=== PATIENT | male | born 1940 | race Caucasian/White ===

== ENCOUNTER → 2020-02-28 10:00 | Outpatient (CLI) | payer MEDICARE, OTHER | END | disposition home or self-care (01) | LOC: D.HCCARDIO 10:00 | PROVIDERS: ATTEND Internal Medicine Cardiovascular Disease | DX: I25.10 Atherosclerotic heart disease of native coronary artery without angina pectoris (principal) ==

== ENCOUNTER 2020-03-12 11:09 | Day surgery (SDC) | payer MEDICARE, OTHER ==
[~2020-03-12] VITALS: Ht 177.8 cm; Wt 98.5 kg
--- NOTE | ~2020-03-12 | HEMODYNAMI ---
PATIENT:ROSIE SOTOMAYOR SR MEDICAL RECORD: [id number] : 40 LOCATION:[facility] ADMISSION DATE: 03/12/20 Generatedon:03/12/202014:29 Patient name: ROSIE SOTOMAYOR Patient #: [id number] SSN: [id number] : 1940 Date of study: 03/12/2020 Page: Of Hemodynamic Procedure Report Patient Data Patient Demographics Procedure consent was obtained First Name: ROSIE Gender: Male Last Name: BRAN Suffix: [facility] Initial: D : 1940 Patient #: [id number] Age: 79 year(s) Race: SSN: [id number] Additional ID: [id number] Contact details [address]: [address] [place] [address] State: [place] City: [place] Zip code: [address] Past Medical History Allergies: No known allergies Admission Admission Data Admission Date: 03/12/2020 Admission Time: 11:09 Arrival Date: 03/12/2020 Arrival Time: 0:00 Height (in.): 70.08 BSA: 2.17 (m2) Height (cm.): 178 BMI: 31.25 (kg/m2) Weight (lbs.): 218.26 Weight (kg.): 99 Lab Results Lab Result Date: 03/12/2020 Lab Result Time: 0:00 Biochemistry Name Units Result Min Max BUN mg/dl 27 --(----)-* 7 18 Creatinine mg/dl 1.8 --(----)-* 0.6 1.3 eGFR ml/min 39 *-(----)-- 90 120 NONAFRICAN CBC Name Units Result Min Max Hematocrit % 39.5 -*(----)-- 42 54 Hemoglobin g/dl 12.8 -*(----)-- 13.5 17.5 Procedure Procedure Types Cath Procedure Diagnostic Procedure LHC [facility] w/Coronaries Sedation Charges Moderate Sedation up to 15 minutes Procedure Description Procedure Date Procedure Date: 03/12/2020 Procedure Start Time: 13:58 Procedure End Time: 14:25 Procedure Staff Name Function Dax Estrada MD Performing Physician Zelda Gómez RT Monitor Mila French RN Nurse Raven Mancia RT Scrub Indication CAD Procedure Data Cath Procedure Fluoroscopy Diagnostic fluoroscopy Total fluoroscopy Time: 0 time: 0 min min Diagnostic fluoroscopy Total fluoroscopy dose: dose: 1010 mGy 1010 mGy Contrast Material Contrast Material Type Amount (ml) Isovue 300 86 Entry Location Entry Primary Successful Side Size Upsize Upsize Entry Closure Succes sful Closure Location (Fr) 1 (Fr) 2 (Fr) Remarks Device Remarks Radial Right 6 Fr artery Short Femoral Right 5 Fr Exoseal artery Estimated blood loss: 10 ml Diagnostic catheters Device Type Used For End Catheter Placement DIAGNOSTIC Marshall 110cm Procedure 5Fr catheter ([id number]) DIAGNOSTIC [place] 110cm 5 Procedure Fr catheter ([id number]) DIAGNOSTIC AR MOD 5Fr Procedure Catheter ([id number]) DIAGNOSTIC AR MOD 5Fr Procedure Catheter ([id number]) Procedure Complications No complications Procedure Medications Medication Administration Route Dosage 0.9% NaCl I.V. 100 ml/hr Oxygen etCO2 Nasal cannula 2 l/min Lidocaine 2% added to field 20 Heparin Flush Bag added to field 2 bags (1000units/500ml NS) Radial Cocktail added to field 1 syringe (Verapamil 2mg/Nitro 400mcg/Heparin 1500units) Versed I.V. 2 mg Fentanyl I.V. 50 mcg Fentanyl I.V. 50 mcg Hemodynamics Rest BSA: 2.17 (m2) HGB: 12.8 (g/dl) O2 Consumption: Estimated: 238.66 (ml/min) O2 Co nsumption indexed: Estimated:109.98 (ml/min/m) Heart Rate: 58 (bpm) Pressure Samples Time Site Value (mmHg) Purpose Heart Use Rate(bpm) 14:01 LV 128/8,17 Snapshot 55 Gradients Valve Time Site Site Mean SEP/DFP Peak To Heart Use 1 2 (mmHg) (sec/min) Peak Rate (mmHg) (bpm) Aortic 14:02 LV AO 58 Snapshots Pre Cath Intra NCS Post Cath Vital Signs Time Heart Resp SPO2 etCO2 NIBP (mmHg) Rhythm Pain Sedation Rate (ipm) (%) (mmHg) Status Level (bpm) 13:35:14 52 13 98 31.5 150/68(123) SB 0 (11) 10(A) , No pain 13:39:38 55 13 98 29.6 143/67(119) SB 0 (11) 10(A) , No pain 13:43:59 62 13 98 36.8 147/68(117) NSR 0 (11) 10(A) , No pain 13:48:19 58 13 98 31.5 139/73(107) SB 0 (11) 10(A) , No pain 13:53:11 56 12 97 39.8 146/73(108) SB 0 (11) 10(A) , No pain 13:57:32 53 11 97 36 145/67(118) SB 0 (11) 10(A) , No pain 14:01:50 56 13 97 33.7 120/59(88) SB 0 (11) 10(A) , No pain 14:06:47 53 12 96 33.7 123/63(98) SB 0 (11) 9(A) , No pain 14:10:57 52 11 97 32.2 121/61(103) SB 0 (11) 9(A) , No pain 14:15:11 52 11 98 33.7 132/64(109) SB 0 (11) 9(A) , No pain 14:19:27 54 13 98 30.8 134/68(111) SB 0 (11) 9(A) , No pain 14:23:45 49 12 98 35.2 133/69(108) SB 0 (11) 9(A) , No pain Medications Time Medication Route Dose Verified Delivered Reason Notes E ffectiveness by by 13:39:06 0.9% NaCl I.V. 100 Dax Mila used for ml/hr Sean French scenario writer 13:39:13 Oxygen etCO2 2 l/min Dax Mila used for Nasal Sean French procedure cannula RN 13:39:17 Lidocaine 2% added 20ml Dax Dax for local to vial Sean Estrada MD anesthetic field 13:39:21 Heparin Flush added 2 bags Dax Dax used for Bag to Sean Estrada MD procedure (1000units/500ml field NS) 13:39:30 Radial Cocktail added 1 Dax Dax used for (Verapamil to syringe Sean Estrada MD procedure 2mg/Nitro field 400mcg/Heparin 1500units) 13:56:12 Versed I.V. 2 mg Dax Mila for Sean French sedation RN 13:56:20 Fentanyl I.V. 50 mcg Dax Mila for Sean French sedation RN 14:01:10 Fentanyl I.V. 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 12:57:16 Time tracking: Regular hours (M-F 7:00 - 5:00) 12:57:27 Plan of Care:Hemodynamics will remain stable., Cardiac rhythm will remain stable., Comfort level will be maintained., Respiratory function will remain adequate., Patient/ family verbilizes understanding of procedure., Procedure tolerated without complication., Recovers from procedure without complications.. 12:59:16 H&P Date Dictated: 03/12/2020 H&P Addendum completed by physician on day of procedure. (MUST COMPLETE FOR ALL OUTPATIENTS), New H&P dictated by physician.. 13:10:46 Lab Result : eGFR NONAFRICAN 39 ml/min 13:10:46 Lab Result : Hemoglobin 12.8 g/dl 13:10:46 Lab Result : BUN 27 mg/dl 13:10:46 Lab Result : Creatinine 1.8 mg/dl 13:10:46 Lab Result : Hematocrit 39.5 % 13:10:54 Patient Height : 70.08 inches 13:10:59 Patient Weight : 218.26 lbs 13:16:38 Risk of Mortality: 0.3 13:16:43 Risk of blood transfusion: 0.7 13:16:47 Risk of LANDON: 3.0 13:17:04 Lab results completed and on chart. 13:18:03 Patient allergic to No known allergies 13:34:04 Vital chart was started 13:39:06 0.9% NaCl 100 ml/hr I.V. was administered by Mila French RN; used for procedure; Verbal order read back and verified. 13:39:13 Oxygen 2 l/min etCO2 Nasal cannula was administered by Mila French RN; used for procedure; Verbal order read back and verified. 13:39:17 Lidocaine 2% 20ml vial added to field was administered by Dax Estrada MD; for local anesthetic; Verbal order read back and verified. 13:39:21 Heparin Flush Bag (1000units/500ml NS) 2 bags added to field was administered by Dax Estrada MD; used for procedure; Verbal order read back and verified. 13:39:30 Radial Cocktail (Verapamil 2mg/Nitro 400mcg/Heparin 1500units) 1 syringe added to field was administered by Dax Estrada MD; used for procedure; Verbal order read back and verified. 13:44:53 Mila French RN sent for patient. Start room use. 13:45:02 Warm blankets applied, and ky hugger turned on for patient comfort. 13:45:03 Correct patient and procedure confirmed by team. 13:45:06 ECG and BP/O2 sat monitors applied to patient. 13:45:13 Baseline sample Acquired. 13:45:21 Full Disclosure recording started 13:45:28 Pre-procedure instructions explained to patient. 13:45:47 Is the patient allergic to Iodine/contrast media? No. 13:45:51 Is patient on blood thinner?Yes 13:45:59 Patient diabetic? Yes. 13:46:02 If diabetic: On Metformin? No 13:46:07 Snore? Yes 13:46:08 Sleep apnea? No 13:46:18 Dentures? No ? 13:46:26 Patient pain scale 0/10 ?. 13:46:34 IV patent on arrival in left forearm with 0.9% NaCl at [facility]. 13:46:45 Right Radial & Right Groin area was prepped with chlora-prep and draped in sterile fashion 13:46:46 Alarms reviewed by R. N. 13:46:47 Sharps counted by scrub and verified by R.N. 13:46:48 Physician paged 13:47:05 Use device set Radial Dx or PCI 13:48:09 ACIST Syringe (04895) opened to sterile field. 13:48:09 Medline Cath Pack ([id number]) opened to sterile field. 13:48:10 Bag Decanter (2002) opened to sterile field. 13:48:11 ACIST Hand Control (97033) opened to sterile field. 13:48:11 ACIST Manifold (07183) opened to sterile field. 13:48:12 Tegaderm 4 x 4 (1626W) opened to sterile field. 13:48:52 MBrace Wrist Support ([id number]) opened to sterile field. 13:49:04 EMERALD Guide Wire (675-932) opened to sterile field. 13:49:04 SHEATH 6FR RAIN ([id number]) opened to sterile field. 13:55:22 Physician arrived 13:55:22 --------ALL STOP TIME OUT------ 13:55:23 Final Timeout: patient, procedure, and site verified with staff and physician. All members of the team are in agreement. 13:55:26 Right Radial & Right Groin site verified by team. 13:55:31 Fire Safety Assessment: A--An alcohol-based skin anteseptic being used preoperatively., C--Open oxygen or nitrous oxide is being used., D--An ESU, laser, or fiber-optic light is being used. 13:55:41 Physical assessment completed. ASA score P 3 - A patient with severe systemic disease as per Dax Estrada MD. 13:55:45 2) 60-89 Mildly reduced kidney function, and other findings (as for stage 1) point to kidney disease. 13:55:49 Maximum allowable contrast dose (3.7 X eGFR X 0.75)108 ml. 13:55:53 Sedation plan: IV Moderate Sedation Medication:Versed, Fentanyl 13:56:12 Versed 2 mg I.V. was administered by Mila French RN; for sedation; Verbal order read back and verified. 13:56:20 Fentanyl 50 mcg I.V. was administered by Mila French RN; for sedation; Verbal order read back and verified. 13:58:52 Procedure started. 13:58:58 Local anesthetic to right radial artery with Lidocaine 2% by Dax Estrada MD.INITIAL ACCESS ONLY 13:59:09 A 6 Fr Short sheath was inserted into the Right Radial artery 13:59:23 J wire advanced. 13:59:53 A DIAGNOSTIC Marshall 110cm 5Fr catheter (600129) was advanced over the wire and used for Procedure. 14:01:10 Fentanyl 50 mcg I.V. was administered by Mila French RN; for sedation; Verbal order read back and verified. 14:02:01 LV gram done using GROSS 14:02:08 EF : 50 % 14:04:15 Catheter removed. 14:04:22 A DIAGNOSTIC [place] 110cm 5 Fr catheter (681347) was advanced over the wire and used for Procedure. 14:05:42 LCA angiography performed. 14:08:42 Catheter removed. 14:08:56 A DIAGNOSTIC AR MOD 5Fr Catheter ([id number]) was advanced over the wire and used for Procedure. 14:11:51 Catheter removed. 14:12:07 SHEATH 5FR Grace ([id number]) opened to sterile field. 14:12:21 Local anesthetic to right femoral artery with Lidocaine 2% by Dax Estrada MD.ADDITIONAL ACCESS 14:12:35 A 5 Fr sheath was inserted into the Right Femoral artery 14:14:28 A DIAGNOSTIC AR MOD 5Fr Catheter ([id number]) was advanced over the wire and used for Procedure. 14:14:31 RCA angiography performed. 14:21:03 Catheter removed. 14:21:18 Sheath removed intact; hemostasis achieved with Exoseal to the Right Femoral artery. 14:21:24 Procedure ended.(Physican Out) 14:21:31 Fluoroscopy time 00.00 minutes. 14:21:38 Flurop Dose total: 1010 14:21:38 Fluoroscopy dose: 1010 mGy 14:21:55 Dose Area Product 56270 mGy/cm. 14:22:39 Contrast amount:Isovue 300 86ml. 14:22:42 Maximum allowable dose exceeded? No. 14:22:48 [place] band inflated with 10cc of air. 14:22:50 Insertion/operative site no bleeding no hematoma. 14:23:05 Post right femoral artery:stable 14:23:07 Post Procedure Pulses reassessed and unchanged 14:23:11 Post-procedure physical assessment completed. ASA score P 3 - A patient with severe systemic disease as per Dax Estrada MD. 14:23:15 Post procedure rhythm: unchanged. 14:23:28 Estimated blood loss: 10 ml 14:23:32 Post procedure instruction explained to patient.Patient verbalizes understanding. 14:23:48 Procedure type changed to Cath procedure, Diagnostic procedure, LHC, LHC w/Coronaries, Sedation Charges, Moderate Sedation up to 15 minutes 14:24:30 Procedure and supply charges have been captured, reviewed, submitted and are correct. 14:24:56 Procedure Complication : No complications 14:25:01 Vital chart was stopped 14:25:09 [facility] Findings: MVD- MD will discuss options w/ pt 14:25:12 Operative report dictated upon procedure completion. 14:25:13 See physician's report for complete and final results. 14:25:15 Report given to Pre/Post Procedure Room. 14:25:18 Patient transfered to Pre/Post Procedure Room with Stretcher. 14:25:21 Procedure ended. 14:25:21 Full Disclosure recording stopped 14:25:24 End room use (Document Last) Device Usage Item Name Manufacture Quantity Catalog Hospital Part Current Minima l Lot# / Number Charge Number Stock Stock Serial# Code ACIST Acist 1 71964 257805 391512 945000 20 Syringe Medical (16125) Systems Inc Medline Medline 1 [id number] 468286 88282 171470 5 Cath Pack ([id number]) Bag Microtek 1 938343 00263 082767 5 Decanter Medical Inc. () ACIST Hand Acist 1 55627 808266 049658 588285 5 Control Medical (87500) Systems Inc ACIST Acist 1 30470 955763 553608 997425 5 Manifold Medical (81832) Systems Inc Tegaderm 4 3M 1 1626W 013014 675785 233570 5 x 4 (1626W) MBrace Advanced 1 140-0250-00 634784 15014 244394 5 Wrist Vascular Support Dynamics ([id number]) EMERALD Cardinal 1 502-455 003357 972193 543206 5 Guide Wire Health (502-455) SHEATH 6FR Cardinal [address] 1216[address] 6[address]39 957[address]10 560641 [address] [facility] Health (3518584) DIAGNOSTIC Terumo 1 40-5023 068733 549185 445114 5 Marshall 110cm 5Fr catheter (981512) DIAGNOSTIC Terumo 1 40-5013 581181 459129 272463 5 [place] 110cm 5 Fr catheter (010957) DIAGNOSTIC Cardinal 1 106901P 186079 950437 009311 15 AR MOD 5Fr Health Catheter (703162H) SHEATH 5FR Terumo 1 [id number] 558002 292064 437452 5 Grace ([id number]) Signature Audit [place] Stage Time Signature Unsigned Intra-Procedure 03/12/2020 Zelda Gómez 2:26:52 PM RT(R) Intra-Procedure 03/12/2020 Mila French 2:27:12 PM RN Intra-Procedure 03/12/2020 Dax Estrada MD 2:29:37 PM [place] [id number] [id number]
[2020-03-12] MEDS ORDERED: HYDRALAZINE HC100 MG PO (11:48)
[2020-03-12] MEDS ORDERED: PROCARDIA XL60 MG PO (11:48)
[2020-03-12] MEDS ORDERED: TRICOR145 MG PO (11:48)
[2020-03-12] MEDS ORDERED: BAYER CHEWABLE81 MG PO (11:49)
[2020-03-12] MEDS ORDERED: PLAVIX75 MG PO (11:49)
[2020-03-12] MEDS ORDERED: PRAVACHOL40 MG PO (11:49)
[2020-03-12 12:11] LABS: BASOPHILS 0.5 % (0-2); EOSINOPHILS 3.3 % (0-7); HEMATOCRIT 39.5 % (42.0-54.0); HEMOGLOBIN 12.8 g/dL (13.5-17.5); IMMATURE GRANULOCYTES 0.1 % (0-5); LYMPHOCYTES 17.5 % (15-50); MCH 28.9 pg (26.0-34.0); MCHC 32.4 g/dL (31.0-37.0); MCV 89.2 fL (80.0-100.0); MEAN PLATELET VOLUME 12.1 fL (7.4-10.4); MONOCYTES 6.4 % (2-11); NEUTROPHILS 72.2 % (40-80); PLATELET COUNT 144 10x3/uL (130-400); RBC 4.43 10x6/uL (4.20-6.10); RDW 15.3 % (11.5-14.5); WBC 7.4 10x3/uL (4.8-10.8)
[2020-03-12 12:13] VITALS: BP 159/62; Ht 177.8 cm; Wt 98.5 kg
[2020-03-12 13:06] LABS: ANION GAP 14.9 mmol/L (8-16); CALCIUM 8.5 mg/dL (8.5-10.1); CHOL - HDL RATIO 2.7 ratio (2.3-4.9); CREATININE - SERUM 1.8 mg/dL (0.6-1.3); LDL-HDL RATIO 1.2 ratio (1.5-3.5); POTASSIUM - SERUM 3.9 mmol/L (3.5-5.1)
--- NOTE | 2020-03-12 14:45 | NUR ---
PT RECEIVED VIA STRETCHER FROM [employer]ISUAL [employer]OU[employer]LIST FOR RECOVERY. PT DROWSY, BUT VERBALLY AROUSABLE. PT DENIES PAIN OR DISCOMFORT. IV PATENT INFUSING VIA L ARM PER ORDERS. PT PLACED ON CARDIAC MONITORS AND O2 VIA NC AT 2L. HR SB RATE 49, BP 133/61, RR 14, SAT 97. ZYPHER BAND AND IMMOBILIZER IN PLACE, ATTEMPTED ACCESS BUT UNSUCCESSFUL. NO BLEEDING OR S/S HEMATOMA NOTED. ARM PINK AND WARM, CAP REFILL BRISK. R GROIN W 5FR EXOCELE, DRESSING CDI NO S/S HEMATOMA OR BLEEDING NOTED. LEG PINK AND WARM, PEDAL PULSES PALPABLE. PT INSTRUCTED NOT TO RAISE HEAD OR USE ARM HE VERBALIZED UNDERSTANDING. CALL LIGHT IN REACH
--- NOTE | 2020-03-12 15:12 | NUR ---
PT RESTING COMFORTABLY, ZBAND AND IMMOBILIZER IN PLACE, NO S/S HEMATOMA NOTED. R GROIN SOFT, DRESSING REMAINS CDI NO S/S HEMATOMA OR BLEEDING NOTED. VSS. CALL LIGHT IN REACH, DAUGHTER IN LAW AT BS.
--- NOTE | 2020-03-12 15:45 | NUR ---
100 CC CLEAR YELLOW URINE VIA URINAL. 5CC AIR REMOVED FROM Z BAND, NO BLEEDING OR HEMATOMA NOTED. R GROIN SOFT, DRESSING CDI NO S/S HEMATOMA OR BLEEDING. HOW ELEVATED SLIGHTLY. APPLE JUICE GIVEN. PT DENIES PAIN OR NEEDS AT THIS TIME. CALL LIGHT IN REACH. VSS
--- NOTE | 2020-03-12 16:15 | NUR ---
DISCHARGE INSTRUCTIONS REVIEWED W PT AND FAMILY MEMBER, BOTH VERBALIZED UNDERSTANDING. IV REMOVED W CATH INTACT, MONITORS REMOVED. REMAINING AIR REMOVED FROM Z BAND, NO BLEEDING OR S/S HEMATOMA NOTED. GROIN SOFT, NO S/S HEMATOMA. PT UP TO DRESS FOR DISCHARGE
--- NOTE | 2020-03-12 16:23 | NUR ---
PT AMBULATED TO BR, VOIDING W/O DIFFICULITY. 1635 ZBAND REMOVED W/O BLEEDING OR S/S HEMATOMA NOTED. 2X2 AND SM TEGADERM DRESSING APPLIED, IMMOBILIZER RE APPLIED. PT DISCHARGED VIA WC TO DAUGHTER IN LAW WAITING IN PRIVATE VEHICLE. PT HAD ALL BELONGINGS AND DISCHARGE PAPERWORK
== END 2020-03-12 16:35 | disposition home or self-care (01) ==
LOC: D.CATH 11:09
PROVIDERS: ATTEND Internal Medicine Cardiovascular Disease
DX: I25.119 Atherosclerotic heart disease of native coronary artery with unspecified angina pectoris (principal); R94.39 Abnormal result of other cardiovascular function study

== ENCOUNTER 2020-03-22 07:10 | Day surgery (SDC) | payer MEDICARE, OTHER ==
[~2020-03-22] VITALS: Ht 177.8 cm; Wt 97.0 kg
--- NOTE | ~2020-03-22 | HEMODYNAMI ---
PATIENT:ROSIE SOTOMAYOR SR MEDICAL RECORD: [id number] : 40 LOCATION:[facility] ADMISSION DATE: 03/22/20 Generatedon:03/22/202010:32 Patient name: ROSIE SOTOMAYOR Patient #: [id number] SSN: [id number] : 1940 Date of study: 03/22/2020 Page: Of Hemodynamic Procedure Report Patient Data Patient Demographics Procedure consent was obtained First Name: ROSIE Gender: Male Last Name: BRAN Suffix: [facility] Initial: D : 1940 Patient #: [id number] Age: 79 year(s) Race: SSN: [id number] Additional ID: [id number] Contact details [address]: [address] [place] [address] State: [place] City: [place] Zip code: [address] Past Medical History Allergies: No known allergies Admission Admission Data Admission Date: 03/22/2020 Admission Time: 7:10 Lab Results Lab Result Date: 03/22/2020 Lab Result Time: 0:00 Biochemistry Name Units Result Min Max BUN mg/dl 38 --(----)-* 7 18 Creatinine mg/dl 1.9 --(----)-* 0.6 1.3 eGFR ml/min 36 *-(----)-- 90 120 NONAFRICAN CBC Name Units Result Min Max Hemoglobin g/dl 13.8 --(*---)-- 13.5 17.5 Procedure Procedure Types Cath Procedure Diagnostic Procedure Sedation Charges Moderate Sedation up to 30 minutes PCI Procedure Coronary Stent Coronary Stent Initial x2 Hemochron ACT Test Procedure Description Procedure Date Procedure Date: 03/22/2020 Procedure Start Time: 9:57 Procedure End Time: 10:29 Procedure Staff Name Function Dax Estrada MD Performing Physician Zelda Gómez RT Monitor Raven Mancia RT Scrub Devora Barbour RN Nurse Lenka Stern RT Music Pastor Procedure Data Cath Procedure Fluoroscopy Diagnostic fluoroscopy Total fluoroscopy Time: 5.9 time: 5.9 min min Diagnostic fluoroscopy Total fluoroscopy dose: 869 dose: 869 mGy mGy Contrast Material Contrast Material Type Amount (ml) Isovue 300 66 Entry Location Entry Primary Successful Side Size Upsize Upsize Entry Closure Succe ssful Closure Location (Fr) 1 (Fr) 2 (Fr) Remarks Device Remarks Femoral Right 6 Fr Perclose artery Short ProGlide Estimated blood loss: 10 ml Procedure Complications No complications Procedure Medications Medication Administration Route Dosage 0.9% NaCl I.V. 100 ml/hr Heparin Flush Bag added to field 2 bags (1000units/500ml NS) Lidocaine 2% added to field 20 Oxygen NC 2 l/min Versed I.V. 0.5 mg Fentanyl I.V. 25 mcg Versed I.V. 0.5 mg Fentanyl I.V. 25 mcg Heparin Bolus I.V. 9700 units Hemodynamics Rest Heart Rate: 52 (bpm) Snapshots Pre Cath Intra NCS Post Cath Vital Signs Time Heart Resp SPO2 etCO2 NIBP (mmHg) Rhythm Pain Sedation Rate (ipm) (%) (mmHg) Status Level (bpm) 9:35:46 55 13 99 31.4 132/67(110) NSR 0 (11) 10(A) , No pain 9:40:00 56 10 99 34.4 134/69(105) NSR 0 (11) 10(A) , No pain 9:44:16 55 13 99 30.7 131/66(106) NSR 0 (11) 10(A) , No pain 9:49:15 53 15 97 23.2 Measuring NSR 0 (11) 10(A) , No pain 9:49:23 53 16 97 20.2 132/66(106) NSR 0 (11) 9(A) , No pain 9:53:42 58 14 97 9 125/66(97) NSR 0 (11) 9(A) , No pain 9:57:57 53 13 96 12 127/63(97) NSR 0 (11) 9(A) , No pain 10:02:13 52 13 96 8.9 127/65(97) NSR 0 (11) 9(A) , No pain 10:06:29 50 13 95 15 118/63(93) NSR 0 (11) 9(A) , No pain 10:10:43 50 12 96 11.9 128/62(98) NSR 0 (11) 9(A) , No pain 10:14:59 52 14 97 14.9 125/63(92) NSR 0 (11) 9(A) , No pain 10:19:16 49 14 96 11.2 124/61(98) NSR 0 (11) 9(A) , No pain 10:24:14 46 13 98 9 Measuring NSR 0 (11) 10(A) , No pain 10:24:29 46 12 98 14.2 123/61(99) NSR 0 (11) 10(A) , No pain 10:28:45 47 13 97 19.5 125/63(98) NSR 0 (11) 10(A) , No pain Medications Time Medication Route Dose Verified Delivered Reason Notes Effectiveness by by 9:36:34 0.9% NaCl I.V. 100 Dax Devora used for ml/hr Sean Barbour manager machine 9:36:50 Heparin Flush added 2 Dax Dax used for Bag to bags Sean Estrada MD procedure (1000units/500ml field NS) 9:37:00 Lidocaine 2% added 20ml Dax Dax for local to vial Sean Estrada MD anesthetic field 9:37:09 Oxygen NC 2 Dax Devora for low 02 sats l/min Sean Barbour RN 9:46:44 Versed I.V. 0.5 Dax Devora for sedation mg Sean Barbour RN 9:46:51 Fentanyl I.V. 25 Dax Devora for sedation mcg Sean Barbour RN 9:51:18 Versed I.V. 0.5 Dax Devora for sedation mg Sean Barbour RN 9:51:24 Fentanyl I.V. 25 Dax Devora for sedation mcg Sean Barbour RN 10:01:23 Heparin Bolus I.V. 9700 Dax Devora for verifi ed units Sean Barbour anticoagulation with dr. REID estrada Procedure Log Time Note 9:22:51 Informed consent obtained and on chart 9:23:39 Time tracking: Regular hours (M-F 7:00 - 5:00) 9:23:42 Lenka Stern RT(R) sent for patient. Start room use. 9:23:48 Procedure Status PCI. 9:32:19 Plan of Care:Hemodynamics will remain stable., Cardiac rhythm will remain stable., Comfort level will be maintained., Respiratory function will remain adequate., Patient/ family verbilizes understanding of procedure., Procedure tolerated without complication., Recovers from procedure without complications.. 9:32:26 Patient received from Pre/Post Procedure Room to CCL 2 Alert and oriented. Tansferred to table in Supine position. 9:32:28 Warm blankets applied, and ky hugger turned on for patient comfort. 9:32:28 Correct patient and procedure confirmed by team. 9:32:36 H&P Date Dictated: 03/22/2020 Within 30 days and on chart., H&P Addendum completed by physician on day of procedure. (MUST COMPLETE FOR ALL OUTPATIENTS). 9:32:40 Pre-procedure instructions explained to patient. 9:32:52 Family in patients room. 9:33:00 Patient allergic to No known allergies 9:33:44 Is the patient allergic to Iodine/contrast media? No. 9:33:45 Is patient on blood thinner?Yes 9:33:54 ACC The patient was administered the following blood thiners within the last 24 hours: ACCPlavix 9:34:28 Vital chart was started 9:36:34 0.9% NaCl 100 ml/hr I.V. was administered by Devora Barbour RN; used for procedure; Verbal order read back and verified. 9:36:50 Heparin Flush Bag (1000units/500ml NS) 2 bags added to field was administered by Dax Estrada MD; used for procedure; Verbal order read back and verified. 9:37:00 Lidocaine 2% 20ml vial added to field was administered by Dax Estrada MD; for local anesthetic; Verbal order read back and verified. 9:37:09 Oxygen 2 l/min NC was administered by Devora Barbour RN; for low 02 sats; Verbal order read back and verified. 9:37:43 Patient diabetic? Unknown. 9:37:55 Snore? Yes 9:37:57 Sleep apnea? Unknown 9:38:08 Patient pain scale 0/10 ?. 9:38:14 IV patent on arrival in left forearm with 0.9% NaCl at KVO. 9:38:52 Lab Result : Creatinine 1.9 mg/dl 9:38:52 Lab Result : BUN 38 mg/dl 9:38:52 Lab Result : eGFR NONAFRICAN 36 ml/min 9:38:52 Lab Result : Hemoglobin 13.8 g/dl 9:39:03 Lab results completed and on chart. 9:42:26 Right groin area was prepped with chlora-prep and draped in sterile fashion 9:42:27 Alarms reviewed by R. N. 9:42:28 Sharps counted by scrub and verified by R.N. 9:42:29 Physician arrived 9:42:30 --------ALL STOP TIME OUT------ 9:42:30 Final Timeout: patient, procedure, and site verified with staff and physician. All members of the team are in agreement. 9:42:33 Right groin site verified by team. 9:42:49 Fire Safety Assessment: A--An alcohol-based skin anteseptic being used preoperatively., C--Open oxygen or nitrous oxide is being used., D--An ESU, laser, or fiber-optic light is being used. 9:42:52 Physical assessment completed. ASA score P 2 - A patient with mild systemic disease as per Dax Estrada MD. 9:42:58 3a) 45-59 Moderately reduced kidney function. 9:43:01 Maximum allowable contrast dose (3.7 X eGFR X 0.75)100 ml. 9:43:09 Sedation plan: IV Moderate Sedation Medication:Versed, Fentanyl 9:45:55 Use device set Femoral Dx 9:45:57 ACIST Syringe (39066) opened to sterile field. 9:45:58 Bag Decanter (2002) opened to sterile field. 9:45:58 Medline Cath Pack ([id number]) opened to sterile field. 9:45:59 ACIST Hand Control (53798) opened to sterile field. 9:46:00 ACIST Manifold (36773) opened to sterile field. 9:46:02 Tegaderm 4 x 4 (1626W) opened to sterile field. 9:46:05 EMERALD Guide Wire (118-309) opened to sterile field. 9:46:31 SHEATH 6FR Leupp (ANR486) opened to sterile field. 9:46:32 BMW 300cm [place] 2 J wire ([id number]) opened to sterile field. 9:46:32 INFLATOR Merit Esther (VB0782) opened to sterile field. 9:46:44 Versed 0.5 mg I.V. was administered by Devora Barbour RN; for sedation; Verbal order read back and verified. 9:46:51 Fentanyl 25 mcg I.V. was administered by Devora Barbour RN; for sedation; Verbal order read back and verified. 9:51:18 Versed 0.5 mg I.V. was administered by Devora Barbour RN; for sedation; Verbal order read back and verified. 9:51:24 Fentanyl 25 mcg I.V. was administered by Devora Barbour RN; for sedation; Verbal order read back and verified. 9:51:48 Baseline sample Acquired. 9:51:51 Full Disclosure recording started 9:53:26 TUBING High Pressure Extension Tubing (Sean) ([id number]) opened to sterile field. 9:54:24 Zero performed for pressure channel P1 9:56:45 Procedure started. 9:57:00 Local anesthetic to right femoral artery with Lidocaine 2% by Dax Estrada MD.INITIAL ACCESS ONLY 9:57:19 A 6 Fr Short sheath was inserted into the Right Femoral artery 10:01:23 Heparin Bolus 9700 units I.V. was administered by Devora Barbour RN; for anticoagulation; verified with dr. estrada Verbal order read back and verified. 10:02:33 Proceeding to intervention. 10:02:45 6 Fr JR4 guide catheter was inserted over the wire 10:02:50 BMW wire advanced. 10:02:51 Wire advanced across lesion. 10:06:19 Place stent Inflation Number: 1 A ETTA OTW 3.0 x 22 stent ([id number]) was prepped and advanced across the Dist RCA 80. The stent was deployed at 13 AMERICO for 0:20 (min:sec) 0. 10:07:02 Guide catheter removed. 10:07:23 GUIDE 6FR XBLAD 3.5 catheter ([id number]) opened to sterile field. 10:08:19 6 Fr xblad3.5 guide catheter was inserted over the wire 10:13:57 BMW wire advanced. 10:14:00 Wire advanced across lesion. 10:16:07 Place stent Inflation Number: 1 A ETTA OTW 2.5 x 18 stent ([id number]) was prepped and advanced across the Prox LAD 90. The stent was deployed at 14 AMERICO for 0:30 (min:sec) 0. 10:17:51 perclose opened to the feild and used for procedure 10:17:57 Wire removed. 10:17:57 Guide catheter removed. 10:19:53 Sheath removed intact; hemostasis achieved with Perclose ProGlide to the Right Femoral artery. 10:19:57 Procedure ended.(Physican Out) 10:21:16 Fluoroscopy time 05.90 minutes. 10:21:26 Fluoroscopy dose: 869 mGy 10:21:26 Flurop Dose total: 869 10:21:32 Dose Area Product 04972 mGy/cm. 10:25:18 Contrast amount:Isovue 300 66ml. 10:25:34 ACT drawn and resulted at out of range seconds. (normal therapeutic range 180-240 seconds). 10:25:40 Insertion/operative site no bleeding no hematoma. 10:25:43 Post Procedure Pulses reassessed and unchanged 10:25:47 Post procedure rhythm: unchanged. 10:25:51 Estimated blood loss: 10 ml 10:25:54 Post procedure instruction explained to patient.Patient verbalizes understanding. 10:27:13 Procedure type changed to Cath procedure, Diagnostic procedure, Sedation Charges, Moderate Sedation up to 30 minutes, PCI procedure, Coronary Stent, Coronary Stent Initial x2, Hemochron ACT Test 10:28:06 Procedure and supply charges have been captured, reviewed, submitted and are correct. 10:28:41 Procedure Complication : No complications 10:28:44 Vital chart was stopped 10:28:51 [facility] Findings: MVD- PCI performed (see procedure note) 10:28:54 See physician's report for complete and final results. 10:28:56 Report given to Pre/Post Procedure Room. 10:29:06 Patient transfered to Pre/Post Procedure Room with Stretcher. 10:29:09 Procedure ended. 10:29:09 Full Disclosure recording stopped 10:29:17 End room use (Document Last) Intervention Summary Intervention Notes Time ActionType Lesion and Equipment Action# Pressure Duration Attributes Used 10:06:19 Place stent Dist RCA ETTA OTW 3.0 1 13 00:20 x 22 stent ([id number]) 10:16:07 Place stent Prox LAD ETTA OTW 2.5 1 14 00:30 x 18 stent ([id number]) Device Usage Item Name Manufacture Quantity Catalog Hospital Part Current Mini mal Lot# / Number Charge Number Stock Stock Serial# Code ACIST Syringe Acist 1 02283 024136 589789 475535 20 (26588) Medical Systems Inc Bag Decanter Microtek 1 165890 34146 873947 5 () Medical Inc. Medline Cath Medline 1 [id number] 499400 15831 019147 5 Pack ([id number]) ACIST Hand Acist 1 12023 953113 261785 945900 5 Control Medical (90240) Systems Inc ACIST Acist 1 04027 129966 148286 229975 5 Manifold Medical (85629) Systems Inc Tegaderm 4 x 3M 1 1626W 818033 325273 048808 5 4 (1626W) EMERALD Guide Cardinal 1 502-455 647073 284052 999039 5 Wire Health (502-455) SHEATH 6FR Terumo 1 VPV123 474655 245158 975553 40 Leupp (RWQ143) BMW 300cm Bueno 1 [id number] 604441 297802 176153 5 [place] 2 J Vascular wire ([id number]) INFLATOR Merit 1 RL4442 084412 806218 089677 15 Merit Medical BasixCompak (OI3589) TUBING High Merit 1 [id number] 417200 51167 934106 10 Pressure Medical Extension Tubing (Estrada) ([id number]) ETTA OTW 3.0 Medtronic 1 [id number] 404024 2482996 715407 5 [id number] x 22 stent ([id number]) GUIDE 6FR Cardinal 1 [id number] 597813 574129 963046 10 XBLAD 3.5 Health catheter (05662371) ETTA OTW 2.5 Medtronic 1 [id number] 518841 04692 719151 5 [id number] x 18 stent ([id number]) Signature Audit [place] Stage Time Signature Unsigned Intra-Procedure 03/22/2020 Zelda Gómez 10:28:29 AM RT(R) Intra-Procedure 03/22/2020 Zelda Gómez 10:30:54 AM RT(R) Intra-Procedure 03/22/2020 Devora 10:31:30 AM Km RN Intra-Procedure 03/22/2020 Dax Estrada MD 10:32:01 AM Signatures Performing Physician : Signature : Dax Estrada MD Date : Time : Monitor : Zelda Rico Signature : RT Date : Time : Nurse : Devora Signature : Km RN Date : Time : [facility] [address] [place] [address]
[~2020-03-22 07:10] MED LIST: BAYER CHEWABLE81 MG PO; HYDRALAZINE HC100 MG PO; PLAVIX75 MG PO; PRAVACHOL40 MG PO; PROCARDIA XL60 MG PO; TRICOR145 MG PO
[2020-03-22 08:25] VITALS: BP 134/62; Ht 177.8 cm; Wt 97.0 kg
[2020-03-22 08:52] LABS: ANION GAP 17.1 mmol/L (8-16); CARBON DIOXIDE 23.3 mmol/L (21.0-32.0); CREATININE - SERUM 1.9 mg/dL (0.6-1.3); POTASSIUM - SERUM 3.4 mmol/L (3.5-5.1)
[2020-03-22 08:57] LABS: HEMATOCRIT 43.2 % (42.0-54.0); HEMOGLOBIN 13.8 g/dL (13.5-17.5); LYMPHOCYTES 17.9 % (15-50); MCHC 31.9 g/dL (31.0-37.0); MCV 87.8 fL (80.0-100.0); MEAN PLATELET VOLUME 12.9 fL (7.4-10.4); NEUTROPHILS 69.3 % (40-80); PLATELET COUNT 160 10x3/uL (130-400); RBC 4.92 10x6/uL (4.20-6.10); WBC 8.7 10x3/uL (4.8-10.8)
--- NOTE | 2020-03-22 10:40 | NUR ---
PT RECEIVED VIA STRETCHER TO ROOM FOR RECOVERY. PT AWAKE BUT DROWSY, DENIES PAIN OR DISCOMFORT AT THIS TIME. IV PATENT INFUSING VIA L ARM PER ORDERS. PERCLOSE SUTURE TO R GROIN, SITE SOFT, DRESSING CDI NO S/S HEMATOMA OR BLEEDING NOTED. PEDAL PULSES PALPABLE X2 IN R LEG. LEG PINK AND WARM. PT PLACED ON CARDIAC MONITORS, HR NSB RATE 52, BP 125/62, RR 16, SAT 98 ON ROOM AIR. PT INSTRUCTED TO KEEP HEAD ON PILLOW AND LEG STRAIGHT, HE VERBALIZED UNDERSTANDING. CALL LIGHT IN REACH, SON AT BS
--- NOTE | 2020-03-22 11:00 | NUR ---
PT RESTING COMFORTABLY, R GROIN SOFT, DRESSING CDI NO S/S HEMATOMA OR BLEEDING NOTED. VSS AT PRESENT. PT DENIES PAIN OR NEEDS AT THIS TIME. CALL LIGHT IN REACH, SON AT BS
--- NOTE | 2020-03-22 11:45 | NUR ---
PT RESTING COMFORTABLY. R GROIN SOFT, DRESSING CDI NO S/S HEMATOMA OR BLEEDING. SON AT BS, CALL LIGHT IN REACH. PT DENIES PAIN OR NEEDS AT THIS TIME
--- NOTE | 2020-03-22 12:15 | NUR ---
SM AMT OF BLEEDING NOTED ON GROIN DRESSING, BANDAGE REMOVED AFTER MANUAL PRESSURE HELD X2 MIN. NO ACTIVE BLEEDING NOTED, NEW BANDAGE APPLIED, WILL MONITOR. HOB ELEVATED 30 DEGREES. PT DENIES PAIN OR DISCOMFORT. VSS AT PRESENT. PT GIVEN URINAL PER REQUEST.
--- NOTE | 2020-03-22 12:45 | NUR ---
GROIN SOFT, DRESSING CDI NO S/S HEMATOMA OR BLEEDING. PT VOIDED 300 CC CLEAR YELLOW URINE VIA URINAL. PT TOLERATING PO FLUIDS, SANDWICH OFFERED BUT HE DECLINED AT THIS TIME. VSS, CALL LIGHT IN REACH
--- NOTE | 2020-03-22 13:15 | NUR ---
GROIN SOFT, SMALL AMT BLEEDING NOTED ON BANDAGE. SANDBAG PLACED OVER SITE FOR EXTRA PRESSURE, WILL CONTINUE TO WATCH. PT DENIES PAIN OR DISCOMFORT. 4OO CC CLEAR URINE EMPTIED FROM URINAL. VSS.
--- NOTE | 2020-03-22 13:55 | NUR ---
DISCHARGE INSTRUCTIONS REVIEWED W PT AND SON, BOTH VERBALIZED UNDERSTANDING. IV REMOVED W CATH INTACT, MONITORS REMOVED. SANDBAG REMOVED, NO NEW BLEEDING NOTED. BANDAGE CHANGED AND EDUCATION GIVEN TO SON AND PT REGARDING WATCHING FOR BLEEDING AND SIGNS TO WATCH FOR, THEY VERBALIZED UNDERSTANDING. SON STATED THAT HIS BROTHER IS A PHYSICIAN AND IS COMING TO THE HOUSE TO CHECK ON PT. PT UP TO DRESS FOR DISCHARGE.
--- NOTE | 2020-03-22 14:10 | NUR ---
PT DISCHARGED VIA WC AFTER BR STOP TO SON WAITING IN PRIVATE VEHICLE. PT HAD ALL BELONGINGS AND DISCHARGE PAPERWORK
== END 2020-03-22 14:10 | disposition home or self-care (01) ==
LOC: D.CATH 07:10
PROVIDERS: ATTEND Internal Medicine Cardiovascular Disease
DX: I25.119 Atherosclerotic heart disease of native coronary artery with unspecified angina pectoris (principal); R94.39 Abnormal result of other cardiovascular function study
CPT/HCPCS: C9600 ×2